=== PATIENT | female | born 1990 | race Hispanic/Latino ===

== ENCOUNTER 2024-12-11 13:00 | Inpatient (IN) | payer MEDICAID ==
[2024-12-10 13:35] LABS: BASOPHILS # (AUTO) 0.06 K/uL (0.00-0.20); BASOPHILS % (AUTO) 0.6 % (0.0-5.0); EOSINOPHILS # (AUTO) 0.24 K/uL (0.00-0.70); EOSINOPHILS % (AUTO) 2.5 % (0.0-8.0); HEMATOCRIT 42.7 % (36-48); IMMATURE GRANULOCYTE ABSOLUTE 0.04 K/uL (0-1); LYMPHOCYTES # (AUTO) 3.3 K/uL (1.0-4.8); LYMPHOCYTES % (AUTO) 34.8 % (21.0-51.0); MEAN CORPUSCULAR HEMOGLOBIN 26.8 pg (27.0-33.0); MEAN CORPUSCULAR HGB CONC 32.8 g/dL (32.0-36.0); MEAN CORPUSCULAR VOLUME 81.6 fL (79-99); MONOCYTES # (AUTO) 0.8 K/uL (0.1-1.0); MONOCYTES % (AUTO) 7.9 % (3.0-13.0); NEUTROPHILS # (AUTO) 5.1 K/uL (1.8-7.7); NEUTROPHILS % (AUTO) 53.8 % (40.0-77.0); PLATELET COUNT (AUTO) 314 K/uL (130-400); RED BLOOD CELL COUNT(AUTO) 5.23 MIL/uL (4.00-5.50); RED CELL DISTRIBUTION WIDTH 13.6 % (11.0-15.5); WHITE BLOOD COUNT (AUTO) 9.5 K/uL (4.8-10.8)
[2024-12-10 13:42] LABS: CREATININE 0.6 mg/dL (0.5-1.0)
[2024-12-10 13:44] LABS: INR 1.03 (0.85-1.15); PROTHROMBIN TIME 10.9 SEC (9.6-11.6)
[2024-12-10 13:45] LABS: PARTIAL THROMBOPLASTIN TIME 28.2 SEC (26.3-35.5)
[2024-12-10 14:01] VITALS: BP 134/76; PULSE 57; RESP 18; TEMP 98.1
[~2024-12-11] VITALS: Ht 160 cm; Wt 125.4 kg
--- NOTE | 2024-12-11 06:47 | EKG ---
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
[~2024-12-11 13:00] MED LIST: IRBE300T26 PO; MULT-1367 PO
--- NOTE | 2024-12-11 15:17 | NUR ---
RE: EKG REPORTED EKG RESULTS TO DR REEVES, NO NEW ORDERS RECEIVED.
[2024-12-12] VITALS (20 sets, daily range): BP systolic 90–142; BP diastolic 41–81; PULSE 56–74; RESP 15–19; TEMP 97.3–98.1; O2SAT 94–99
[2024-12-12] MEDS: CLINDAMYCIN IVPB 900MG/50ML 50 ML IV ONE (07:46)
[2024-12-12] MEDS: metRONIDazole 500MG/100ML BAG 200 ML ONE (07:46)
[2024-12-12] MEDS: LACTATED RINGERS 1000ML 1,000 ML IV ONE (07:46)
[2024-12-12] MEDS ORDERED: LIDOCAINE PF 100MG/5ML (2%) SYRINGE 5ML ONE (08:13)
[2024-12-12] MEDS ORDERED: dexaMETHasone SOD PHOSPHATE 10MG/ML 1ML VIAL ONE (08:13)
[2024-12-12] MEDS ORDERED: proPOFol 10 MG/ML 20ML VIAL IV ONE ×2 (08:15→08:39)
[2024-12-12] MEDS ORDERED: GLYCOPYRROLATE 0.2 MG/ML 5 ML VIAL ONE (08:15)
[2024-12-12] MEDS ORDERED: ondanSETRON 4MG INJ ONE ×2 (08:15→08:41)
[2024-12-12] MEDS ORDERED: SUCCINYLCHOLINE CHLORIDE 20 MG/ML 10 ML VIAL ONE (08:16)
[2024-12-12] MEDS ORDERED: NEOSTIGMINE METHYLSULFATE 1MG/ML IV ONE (08:16)
[2024-12-12] MEDS ORDERED: rocuRONium bROMide 10MG/1ML 5ML VL ONE ×2 (08:16→10:53)
[2024-12-12] MEDS ORDERED: FENTanyl CITRate PF 50 MCG/1 ML 2ML VIAL ONE (08:16)
[2024-12-12] MEDS ORDERED: MIDAZOLAM HCL 1 MG/ML 2ML VIAL ONE (08:16)
[2024-12-12] MEDS ORDERED: phenylEPHRINE HCL 10 MG/ML 1ML VIAL IV ONE (08:50)
[2024-12-12] MEDS: ketaMINE HCL 100 MG/ML 5ML VIAL IJ ONE (09:26)
[2024-12-12] MEDS: SUGAMMADEX SODIUM 200 MG/2 ML VIAL IV ONE (09:26)
[2024-12-12] MEDS: FAMOTIDINE 20MG VIAL IV ONE (09:27)
[2024-12-12] MEDS: acetaMINOPHEN 100 ML ONE (09:27)
[2024-12-12] MEDS ORDERED: BUPIvacaine/PF 0.5% 30ML VIAL ONE (09:30)
[2024-12-12] MEDS: BUPIvacaine/PF 0.5% 30ML VIAL INJ ONE (09:40)
--- NOTE | 2024-12-12 11:31 | PN ---
GENERAL SURGERY PROGRESS NOTE Date/Time Patient Seen: [12/12/24 1130 ] Problem List: [ ] Interval History: [POD 0. S/p VSG and EGD for morbid obesity and related comorbidities. ] Physical Examination: ABD: [incisions c/d/i, Dermabond in place Vital Signs (last 8hr) Date Time Temp Pulse Resp B/P (MAP) Pulse Ox O2 Delivery O2 Flow Rate FiO2 12/12/24 07:00 97.7 74 18 133/75 98 Room Air Laboratory: [ ] Hematology Labs: Test 12/10/24 13:10 Range/Units White Blood Count 9.5 4.8-10.8 K/uL Red Blood Count 5.23 4.00-5.50 MIL/uL Hemoglobin 14.0 12.0-16.0 g/dL Hematocrit 42.7 36-48 % Mean Corpuscular Volume 81.6 79-99 fL Mean Corpuscular Hemoglobin 26.8 L 27.0-33.0 pg Mean Corpuscular Hemoglobin Concent 32.8 32.0-36.0 g/dL Red Cell Distribution Width 13.6 11.0-15.5 % Platelet Count 314 130-400 K/uL Mean Platelet Volume 11.1 H 7.5-10.5 fL Immature Granulocyte % (Auto) 0.4 0-1 % Neutrophils (%) (Auto) 53.8 40.0-77.0 % Lymphocytes (%) (Auto) 34.8 21.0-51.0 % Monocytes (%) (Auto) 7.9 3.0-13.0 % Eosinophils (%) (Auto) 2.5 0.0-8.0 % Basophils (%) (Auto) 0.6 0.0-5.0 % Neutrophils # (Auto) 5.1 1.8-7.7 K/uL Lymphocytes # (Auto) 3.3 1.0-4.8 K/uL Monocytes # (Auto) 0.8 0.1-1.0 K/uL Eosinophils # (Auto) 0.24 0.00-0.70 K/uL Basophils # (Auto) 0.06 0.00-0.20 K/uL Absolute Immature Granulocyte (auto 0.04 0-1 K/uL Nucleated Red Blood Cells 0.0 0.0-0.19 % Chemistry Labs: Test 12/10/24 13:10 Range/Units Sodium Level 136 136-145 mmol/L Potassium Level 4.0 3.5-5.1 mmol/L Chloride Level 102 101-111 mmol/L Carbon Dioxide Level 29 21-32 mmol/L Blood Urea Nitrogen 13 7-18 mg/dL Creatinine 0.6 0.5-1.0 mg/dL Glomerular Filtration Rate Calc 120 >90 mL/min Random Glucose 88 70-105 mg/dL Total Calcium 9.1 8.5-10.1 mg/dL Serum Test, Qualitative NEGATIVE NEGATIVE Coagulation Labs: Test 12/10/24 13:10 Range/Units Prothrombin Time 10.9 9.6-11.6 SEC Prothromb Time International Ratio 1.03 0.85-1.15 Activated Partial Thromboplast Time 28.2 26.3-35.5 SEC Diagnostics / Radiology: [Copy/Paste Echos/Imaging Report here] Impression and Plan: [Plan is for d/c home in the next day or 2, as long as pt tolerating PO, ambulatory and pain under control. ] VIRIDIANA ARIAS Dec 12, 2024 11:31
[2024-12-12] MEDS ORDERED: hydrALAZine 20MG/ML VIAL IV PRN (12:00)
[2024-12-12] MEDS ORDERED: HYDROcod/acetaMINOPHEN 7.5/325 MG 15 ML UDCUP PO PRN (12:00)
[2024-12-12] MEDS ORDERED: PROCHLORPERAZINE 10MG/2ML INJ IV PRN (12:00)
--- NOTE | 2024-12-12 12:02 | OP ---
Operative Note: DATE OF PROCEDURE: 12/12/24 SURGEON: JENIFER YOUNGBLOOD MD DELIVERY OF SHOPPING NEWS: [Please review operative record] ANESTHESIA: [General and local] ANESTHESIOLOGIST/WOUND CARE TECHNICIAN: [Please review operative record] PREOPERATIVE DIAGNOSIS: [Morbid obesity and associated comorbidities including hyperlipidemia, hypertension] POSTOPERATIVE DIAGNOSIS: [Same] SYNOPSIS: [Post sleeve gastrectomy EGD showing no air leak, no obstruction, no active intraluminal bleeding] PROCEDURE: [1. Robotic assisted laparoscopic vertical sleeve gastrectomy. 2. Omentoplasty. 3. Intraoperative EGD] ESTIMATED BLOOD LOSS: [20 cc] INDICATIONS: [Patient is a 34-year-old female with morbid obesity and associated comorbidities including hyperlipidemia, hypertension who has previously failed to obtain ideal weight via diet exercise and medications. Recommendation was given for bariatric surgery. Upon completion of the bariatric surgery process it was decided the sleeve gastrectomy was the appropriate procedure for this patient. Risks, benefits, alternatives were discussed with the patient. All questions were answered. Patient agreed to proceed with surgical recommendation.] DESCRIPTION OF PROCEDURE: [After appropriate consent was obtained, the patient was brought into the operating room and placed in supine position on the operating table. SCDs were placed, preop antibiotics were given. Patient underwent induction of general anesthesia, endotracheal intubation. Patient was then prepped and draped in the usual sterile fashion. Time-out was performed. Through a left subcostal incision, Veress needle was inserted into the peritone al cavity. Insufflation was allowed to 12 mmHg. Through a supraumbilical 8 mm incision, 8 mm trocar and laparoscope were inserted into peritoneal cavity using Optiview. Veress needle and this vicinity were examined with no signs of injury. Rest of my trocars were all placed under direct visualization. Through a 5 mm epigastric incision, Brian liver retractor was placed in order to retract the left lobe of the liver anteriorly. Patient was positioned on a 20 reverse Trendelenburg. At this time the Anastacia robot was docked. We mobilized the greater curvature of the stomach from the angle of his down to 3 cm proximal to the pylorus using the vessel sealer scalpel. We applied a blue load 4 cm from the pylorus parallel to the lesser curvature. We passed the flexible endoscope down the esophagus along the lesser curvature of the stomach and into the pylorus. We then applied a series of white loads parallel to the endoscope up towards the angle of Hiss. Staple lines were examined on both sides and found to be intact. Endoscopy with insufflation was then performed, no air leak was detected, no obstruction, no active intraluminal bleeding was present. An omental covering was placed over the staple edge of the stomach by suturing omental the lesser curvature using 3-0 V lock absorbable suture in a running fashion. This time the Anastacia robot was undocked The gastric remnant was brought out through a right upper quadrant incision. The port of this fascia was then closed with 0 Vicryl suture through a suture Pa sser. Final inspection revealed adequate hemostasis, no concerns for leakage. Counts were correct at the end of the case, all instruments were removed, abdomen was allowed to deflate. Skin incisions were closed with a 4-0 Monocryl. Dermabond was applied over the incisions. Patient tolerated the procedure well. Patient was transferred to the recovery in a good condition.] JENIFER YOUNGBLOOD MD Dec 12, 2024 12:02
[2024-12-12] MEDS: FENTanyl CITRate PF 50 MCG/1 ML 2ML VIAL ONE (12:13)
[2024-12-12] MEDS: ketOROlac 30MG VIAL (30MG/ML) IV PRN (13:47)
[2024-12-12] MEDS: LACTATED RINGERS 1000ML 1,000 ML IV SCH (13:50)
[2024-12-12] MEDS: ondanSETRON 4MG INJ IVP PRN (14:39)
--- NOTE | 2024-12-12 14:45 | NUR ---
void pt able to void 150 ml.
[2024-12-12] MEDS: hydroMORPHone 0.5 MG SYG (0.5MG/0.5ML) IVP PRN (15:01)
[2024-12-13 04:00] VITALS: BP 127/73; PULSE 65; RESP 18; TEMP 97.7
[2024-12-13 07:22] VITALS: PULSE 64; RESP 18; O2SAT 99
[2024-12-13 08:00] VITALS: BP 126/78; PULSE 63; RESP 18; TEMP 98.1; O2SAT 97
[2024-12-13] MEDS: metoCLOPRAmide 10 MG/2 ML VIAL IVP ONE (09:01)
[2024-12-13] MEDS: ENOXAPARIN SODIUM 40 MG/0.4 ML SYRINGE SQ SCH (09:02)
--- NOTE | 2024-12-13 10:36 | NUR ---
DCP:HOME Pt currently lives with her parents. Pt does not report insecurities with food, [facility], and/or utilities. Pt does not have DME, home health, or provider services. Pt does use a CPAP machine. PCP is Carla Melissa and uses [facility] for any RX needs. At [place] pt will go home and family can assist with transportation. Addendum: 12/13/24 at 1038 by ALEXANDRE BUSCH SS Amended: Links added.
[2024-12-13 11:38] VITALS: BP 133/58; PULSE 58; RESP 20; TEMP 98.2
--- NOTE | 2024-12-13 14:25 | NUR ---
Nutrition consult per bariatric Reviewed labs, notes, and medications. Wt via standing scale, last BM 12/09/24, no edema, well nourished, abd. incision per chart review. Brother present during visit. Pt reported <50 %, belching, no gas, has chewable MVI, has been walking around, emesis yesterday, denied N/V today, not part of our bariatric program, spoke to a Dietitian 6x, spoke with event coordinator marketing and sales. RD reviewed educational material for post-op diet recommendations. Pt was informed of importance of lifelong vitamin/mineral supplementation, choosing protein first during meals (pt was educated on higher protein requirements), choosing low calorie, sugar free, carbonated free and caffeine beverages. RD also informed pt on lifelong commitment to exercise and dietary recommendations for optimal success post surgery. RD encouraged getting blood work every 3 to 6 months, including B-vitamins, Pt verbalized understanding. RD informed Pt on moving around after procedure to prevent DVT, Pt verbalized understanding. Pt was encouraged to contact RD as questions arise and to attend support groups. Fair compliance suspected. Pt will benefit from outpatient bariatric dietitian follow up post procedure. Pt to follow up with PCP for labs. Recommendations: -Continue phase 1 bariatric diet for 1 week -chewable MVI QD -Monitor electrolytes -Monitor diet tolerance -Monitor BM -Monitor wts -Monitor PO intake -Recommend Pt to follow up with PCP -Monitor goals of care RD available for consult per protocol Addendum: 12/13/24 at [address] Amended: Links added.
[2024-12-13 16:00] VITALS: BP 114/58; PULSE 66; RESP 19; TEMP 98
--- NOTE | 2024-12-13 19:09 | NUR ---
PATIENT DISCHARGED HOME ID BAND AND IV REMOVED. DISCHARGE INSTRUCTIONS EXPLAINED AND GIVEN TO PATIENT. PATIENT VERBALLIZED UNDERSTANDING. BELONGINGS PACKED AND TAKEN BY PATIENT. WHEELED DOWN TO PRIVATE CAR.
--- NOTE | 2024-12-13 20:25 | DS ---
Discharge Summary HOSPITAL COURSE SUMMARY: [] PIERCE AND SHAVE PRESS OPERATOR(S): [] PROCEDURES: [] PROBLEM(S): [] DISCHARGE INSTRUCTIONS: [] Home Meds Reported Medications Multivitamin (Multivitamin) 1 Each Tablet, 1 EACH PO DAILY, TAB 12/10/24 Irbesartan (Irbesartan) 300 Mg Tablet, 300 MG PO DAILYBKFST, TAB 12/10/24 ANAND PASTRANA [facility] Dec 13, 2024 20:24
--- NOTE | 2024-12-16 12:17 | NUR ---
Transitional Phone Call Spoke with patient, states "I'm doing good. States is taking new prescriptions as instructed; no questions or concerns with medications. [facility] has the follow up appointment with GI surgeon - Dr. Carroll Hammonds on 12/18/2024. No questions or concerns at this time.
== END 2024-12-13 19:15 | disposition home or self-care (01) | DRG 403 ==
LOC: DAHIP 12-12 07:03 → 3AH 12-12 13:30
PROVIDERS: ADMIT Surgery; ATTEND Surgery
PROC: 8E0W4CZ Robotic Assisted Procedure of Trunk Region, Percutaneous Endoscopic Approach (ICD-10-PCS; 2024-12-12)
PROC: 0DXU4ZW Transfer Omentum to Abdominal Region, Percutaneous Endoscopic Approach (ICD-10-PCS; 2024-12-12)
PROC: 0DB64Z3 Excision of Stomach, Percutaneous Endoscopic Approach, Vertical (ICD-10-PCS; principal; 2024-12-12 09:09)
PROC: 0DJ08ZZ Inspection of Upper Intestinal Tract, Via Natural or Artificial Opening Endoscopic (ICD-10-PCS; 2024-12-12 09:09)
DX: E66.01 Morbid (severe) obesity due to excess calories (principal); E78.5 Hyperlipidemia, unspecified; I10 Essential (primary) hypertension; Z68.42 Body mass index [BMI] 45.0-49.9, adult; Z79.899 Other long term (current) drug therapy
CPT/HCPCS: 36415; 43235; 80048; 84703; 85025; 85610; 85730; 86850; 86900; 86901; 88307; 88312; 93005; G0378; J0330; J1100; J1171; J1650; J1885; J2003; J2250; J2371; J2405; J2704; J2710; J2765; J3010; J3490; J7030; J7120; A4213; A4215; A4216; A4221; A4222; A4223; A4600; A4663; A4930; A6260; J0665